=== PATIENT | female | born 2005 | race Caucasian/White ===

== ENCOUNTER 2024-04-09 17:16 | Day surgery (SDC) | payer OTHER ==
[2024-04-09] MEDS ORDERED: hydrALAZINE 20 MG/ML VIAL SLOW IVP PRN (18:19)
[2024-04-09] MEDS: metroNIDAZOLE 500 MG TAB PO SCH (19:52)
== END 2024-04-09 20:01 | disposition home or self-care (01) ==
LOC: CSHLD/OP 17:16
PROVIDERS: ATTEND Family Medicine
DX: O36.8130 Decreased fetal movements, third trimester, not applicable or unspecified (principal); O99.013 Anemia complicating pregnancy, third trimester; D64.9 Anemia, unspecified; O23.593 Infection of other part of genital tract in pregnancy, third trimester; N89.8 Other specified noninflammatory disorders of vagina; B96.89 Other specified bacterial agents as the cause of diseases classified elsewhere; Z3A.30 30 weeks gestation of pregnancy; Z88.8 Allergy status to other drugs, medicaments and biological substances; Z79.82 Long term (current) use of aspirin; Z79.899 Other long term (current) drug therapy
CPT/HCPCS: 76819; 87480; 87510; 87660